=== PATIENT | female | born 1985 | race Caucasian/White ===

== ENCOUNTER → 2016-09-14 | Outpatient (CLI) | payer BC | END | disposition disaster alternative care site (69) | LOC: GAMB 18:10 | DX: S09.93XA Unspecified injury of face, initial encounter (principal); S39.92XA Unspecified injury of lower back, initial encounter; M54.9 Dorsalgia, unspecified; R51 Headache; V89.2XXA Person injured in unspecified motor-vehicle accident, traffic, initial encounter | CPT/HCPCS: A0425; A0429 ==